=== PATIENT | female | born 1965 | race Caucasian/White ===

== ENCOUNTER 2022-01-07 16:06 | Emergency (ER) | payer OTHER ==
[~2022-01-07] VITALS: Ht 160 cm; Wt 81.8 kg
[2022-01-07] MEDS ORDERED: ROSU10TA72 PO (16:22)
[2022-01-07] MEDS ORDERED: METF-81 PO (16:22)
[2022-01-07] MEDS ORDERED: OSEL75 PO (16:27)
[2022-01-07 16:36] VITALS: BP 135/78
== END 2022-01-07 17:04 | disposition home or self-care (01) ==
LOC: EMS 16:10
DX: Z20.828 Contact with and (suspected) exposure to other viral communicable diseases (principal); E11.9 Type 2 diabetes mellitus without complications; E78.00 Pure hypercholesterolemia, unspecified
CPT/HCPCS: 99283; Z7502

== ENCOUNTER 2023-03-05 21:43 | Emergency (ER) | payer OTHER ==
[~2023-03-05] VITALS: Ht 157.5 cm; Wt 81.0 kg
[~2023-03-05 21:43] MED LIST: METF-81 PO; OSEL75 PO; ROSU10TA72 PO
[2023-03-05 22:11] VITALS: BP 191/107; PULSE 76; RESP 16; TEMP 97.8
== END 2023-03-05 23:42 | disposition left against medical advice (07) ==
LOC: EMS 21:43
DX: M54.50 Low back pain, unspecified (principal); Z53.21 Procedure and treatment not carried out due to patient leaving prior to being seen by health care provider
CPT/HCPCS: 99281; Z7502